=== PATIENT | female | born 1945 | race Caucasian/White ===

== ENCOUNTER 2023-06-19 22:19 | Inpatient (IN) | payer MEDICARE, OTHER ==
[~2023-06-19] VITALS: Ht 165.1 cm; Wt 71.2 kg
[2023-06-19 22:50] LABS: BASOPHILS # (AUTO) 0.1 K/UL (0.0-0.2); BASOPHILS % (AUTO) 0.6 % (0.0-2.0); EOSINOPHILS % (AUTO) 10.2 % (0.0-7.0); HEMATOCRIT 40.6 % (31.2-41.9); HEMOGLOBIN 13.3 g/dL (10.9-14.3); LYMPHOCYTES % (AUTO) 9.7 % (20.5-51.5); MEAN CORPUSCULAR HEMOGLOBIN 29.4 uug (24.7-32.8); MEAN CORPUSCULAR HGB CONC 33 g/dL (32.3-35.6); MEAN CORPUSCULAR VOLUME 89.7 fL (75.5-95.3); MONOCYTES # (AUTO) 0.9 K/uL (0.1-1.30); MONOCYTES % (AUTO) 9.5 % (0.0-11.0); PLATELET COUNT (AUTO) 355 K/uL (179-408); RED BLOOD CELL COUNT(AUTO) 4.52 MIL/uL (3.63-4.92); RED CELL DISTRIBUTION WIDTH 13.8 % (12.3-17.7); WHITE BLOOD COUNT (AUTO) 9.9 K/uL (3.8-11.8)
[2023-06-19] MEDS ORDERED: CLON1TAB12 PO (22:51)
[2023-06-19] MEDS ORDERED: CEPH500T PO (22:51)
[2023-06-19] MEDS ORDERED: BUSP10TA3 PO (22:51)
[2023-06-19] MEDS ORDERED: LATA2.5D15 OP (22:51)
[2023-06-19] MEDS ORDERED: FLUO20CA42 PO (22:51)
[2023-06-19] MEDS ORDERED: ALBU8.5H8 IH (22:51)
[2023-06-19] MEDS ORDERED: ATOR40TA PO (22:51)
[2023-06-19] MEDS ORDERED: CLOP75TA33 PO (22:51)
[2023-06-19] MEDS ORDERED: LEVO100T10 PO (22:51)
[2023-06-19] MEDS ORDERED: FLUT1BLS4 IH (22:51)
[2023-06-19] MEDS ORDERED: AMLO10TA59 PO (22:51)
[2023-06-19] MEDS ORDERED: LAMO25TA10 PO (22:51)
[2023-06-19 22:52] LABS: DIFFERENTIAL COMMENT 1
[2023-06-19 23:06] LABS: *BILIRUBIN,URIN NEGATIVE (NEGATIVE); *BLOOD, URINE 2+ (NEGATIVE); *COLOR,URINE YELLOW (YELLOW); *KETONES,URINE NEGATIVE (NEGATIVE); *PROTEIN,URINE 1+ (NEGATIVE); *UROBILINOGEN,URINE 0.2 E.U./dl (NORMAL); LEUKOCYTE ESTERASE ,URINE 2+ (NEGATIVE); NITRITE, URINE NEGATIVE (NEGATIVE); PH,URINE 5.5 (5.0-8.0); UGLUCOSE NEGATIVE (NEGATIVE)
[2023-06-19 23:07] LABS: ETHANOL < 3 MG/DL (0-10)
[2023-06-19 23:09] LABS: ALANINE AMINOTRANSFERASE 19 U/L (14-59); ALBUMIN 3.1 g/dL (3.4-5.0); ALKALINE PHOSPHATASE 99 U/L (50-136); ASPARTATE AMINOTRANSFERASE 9 U/L (15-37); BILIRUBIN,DIRECT 0.1 mg/dL (0.0-0.2); BILIRUBIN,TOTAL 0.1 mg/dL (0.2-1.0); CALCIUM 8.5 mg/dL (8.5-10.1); CARBON DIOXIDE 30 mmol/L (21-32); CHLORIDE 100 mmol/L (98-107); CREATININE 1.2 mg/dL (0.6-1.3); GLUCOSE 110 mg/dL (74-106); POTASSIUM 3.4 mmol/L (3.5-5.1); SODIUM SERUM 138 mmol/L (136-145); TOTAL PROTEIN, SERUM 6.3 g/dL (6.4-8.2); UREA NITROGEN, BLOOD 27 mg/dL (7-18)
[2023-06-19 23:12] LABS: *CLARITY,URINE SLIGHTLY CLOUDY (CLEAR)
[2023-06-19 23:14] LABS: *AMPHETAMINE, URINE NEGATIVE (NEGATIVE); *BARBITURATE, URINE NEGATIVE (NEGATIVE); *BENZODIAZEPINE, URINE NEGATIVE (NEGATIVE); *CANNABINOID, URINE NEGATIVE (NEGATIVE); *COCCAINE, URINE NEGATIVE (NEGATIVE); *OPIATE, URINE NEGATIVE (NEGATIVE); *PHENCYCLIDINE SCREEN,URINE NEGATIVE (NEGATIVE); FENTANYL, URINE NEGATIVE (NEGATIVE)
[2023-06-19 23:33] LABS: BACTERIA,URINE MOD /HPF (NONE SEEN); RBC,URINE 50-80 /HPF (0-3); SQUAMOUS EPITHELIAL CELL,UR FEW /HPF (NONE SEEN); WBC,URINE TNTC /HPF (0-3)
[2023-06-20] MEDS ORDERED: POTASSIUM CHLORIDE 20 MEQ TAB.PRT.SR PO ONE (00:15)
[2023-06-20] MEDS ORDERED: BLOOD SUGAR DIAGNOSTIC 1 EACH STRIP VI ONE (03:45)
[2023-06-20] MEDS ORDERED: MAG HYDROX/AL HYDROX/SIMETH 30 ML LIQUID UDC PO PRN (03:45)
[2023-06-20 04:28] VITALS: BP 113/49; TEMP 97.6; O2SAT 96
[2023-06-20 11:24] VITALS: BP 154/61; TEMP 97.6; O2SAT 98
[2023-06-20] MEDS ORDERED: LAMOTRIGINE 25 MG TABLET PO SCH (12:15)
[2023-06-20] MEDS: ACETAMINOPHEN 325 MG TABLET PO PRN ×2 (12:57→21:39)
[2023-06-20] MEDS: CEphaleXIN 500 MG CAPSULE PO SCH ×2 (14:14→22:23)
[2023-06-20] MEDS: FLUOXETINE HCL 20 MG CAPSULE PO SCH (14:14)
[2023-06-20 16:32] VITALS: BP 150/56; TEMP 98.2; O2SAT 98
[2023-06-20] MEDS: busPIRone 10 MG TABLET PO SCH (16:34)
[2023-06-20 20:00] VITALS: BP 131/52; TEMP 97.8; O2SAT 96
[2023-06-20] MEDS: LAMOTRIGINE 25 MG TABLET PO SCH (20:28)
[2023-06-20] MEDS: TEMAZEPAM 7.5 MG CAPSULE PO PRN (21:39)
[2023-06-21 07:52] VITALS: BP 142/52; TEMP 98.1; O2SAT 99
[2023-06-21 08:44] LABS: ALANINE AMINOTRANSFERASE 18 U/L (14-59); ALBUMIN 2.9 g/dL (3.4-5.0); ALKALINE PHOSPHATASE 91 U/L (50-136); ASPARTATE AMINOTRANSFERASE 9 U/L (15-37); BILIRUBIN,TOTAL 0.4 mg/dL (0.2-1.0); CALCIUM 8.3 mg/dL (8.5-10.1); CARBON DIOXIDE 29 mmol/L (21-32); CHLORIDE 104 mmol/L (98-107); GLUCOSE 113 mg/dL (74-106); POTASSIUM 4.3 mmol/L (3.5-5.1); SODIUM SERUM 140 mmol/L (136-145); TOTAL PROTEIN, SERUM 5.9 g/dL (6.4-8.2); UREA NITROGEN, BLOOD 22 mg/dL (7-18)
[2023-06-21] MEDS: FLUOXETINE HCL 20 MG CAPSULE PO SCH (08:52)
[2023-06-21] MEDS: busPIRone 10 MG TABLET PO SCH ×3 (08:52→16:28)
[2023-06-21] MEDS: LAMOTRIGINE 25 MG TABLET PO SCH ×2 (08:53→20:50)
[2023-06-21] MEDS: CEphaleXIN 500 MG CAPSULE PO SCH ×2 (09:10→20:49)
[2023-06-21 16:19] VITALS: BP 137/48; TEMP 98; O2SAT 99
[2023-06-21] MEDS: MAGNESIUM HYDROXIDE 30 ML LIQUID UDC PO PRN (16:36)
[2023-06-21 20:36] VITALS: BP 161/57; TEMP 98; O2SAT 96
[2023-06-22 08:04] VITALS: BP 133/51; TEMP 98.1; O2SAT 98
[2023-06-22] MEDS: busPIRone 10 MG TABLET PO SCH ×3 (08:39→17:15)
[2023-06-22] MEDS: FLUOXETINE HCL 20 MG CAPSULE PO SCH (08:39)
[2023-06-22] MEDS: CEphaleXIN 500 MG CAPSULE PO SCH ×2 (08:40→20:24)
[2023-06-22] MEDS: LAMOTRIGINE 25 MG TABLET PO SCH ×2 (08:40→20:24)
[2023-06-22 20:36] VITALS: BP 146/43; TEMP 98; O2SAT 98
[2023-06-22] MEDS: ACETAMINOPHEN 325 MG TABLET PO PRN (20:45)
[2023-06-22] MEDS ORDERED: LATANOPROST OPHT DROP 2.5 ML BOTTLE OP SCH (21:30)
[2023-06-22] MEDS ORDERED: ALBUTEROL SULFATE 8 GM HFA.AER.AD IH SCH (21:30)
[2023-06-22] MEDS: ATORVASTATIN 40 MG TABLET PO SCH (22:22)
[2023-06-22] MEDS: CLONAZEPAM 0.5 MG TABLET PO PRN (22:22)
[2023-06-22] MEDS: AMLODIPINE 10 MG TABLET PO SCH (22:22)
[2023-06-23] MEDS: LEVOTHYROXINE SODIUM 100 MCG TABLET PO SCH (06:09)
[2023-06-23 07:56] VITALS: BP 123/43; TEMP 98.1; O2SAT 100
[2023-06-23] MEDS: LAMOTRIGINE 25 MG TABLET PO SCH ×2 (08:33→20:44)
[2023-06-23] MEDS: CEphaleXIN 500 MG CAPSULE PO SCH ×2 (08:33→20:44)
[2023-06-23] MEDS: FLUOXETINE HCL 20 MG CAPSULE PO SCH (08:33)
[2023-06-23] MEDS: CLOPIDOGREL 75 MG TABLET PO SCH (08:33)
[2023-06-23] MEDS: busPIRone 10 MG TABLET PO SCH ×3 (08:34→16:17)
[2023-06-23] MEDS: FLUTICASONE/VILANTEROL 1 EACH BLST.W.DEV INH SCH (09:00)
[2023-06-23 16:30] VITALS: BP 135/57; TEMP 98; O2SAT 99
[2023-06-23 20:00] VITALS: BP 106/67; TEMP 98.4; O2SAT 97
[2023-06-23] MEDS: LATANOPROST OPHT DROP 2.5 ML BOTTLE EACHEYE SCH (20:43)
[2023-06-23] MEDS: ATORVASTATIN 40 MG TABLET PO SCH (20:45)
[2023-06-23] MEDS: AMLODIPINE 10 MG TABLET PO SCH (20:52)
[2023-06-24] MEDS: LEVOTHYROXINE SODIUM 100 MCG TABLET PO SCH (06:49)
[2023-06-24] MEDS: ALBUTEROL SULFATE 2.5 MG/3 ML NEBU NEB SCH ×3 (07:35→19:30)
[2023-06-24 07:52] VITALS: BP 126/52; TEMP 98; O2SAT 98
[2023-06-24 08:35] VITALS: O2SAT 98
[2023-06-24] MEDS: LAMOTRIGINE 25 MG TABLET PO SCH ×2 (08:50→21:05)
[2023-06-24] MEDS: CEphaleXIN 500 MG CAPSULE PO SCH ×2 (08:50→21:05)
[2023-06-24] MEDS: FLUOXETINE HCL 20 MG CAPSULE PO SCH (08:50)
[2023-06-24] MEDS: busPIRone 10 MG TABLET PO SCH ×3 (08:50→16:59)
[2023-06-24] MEDS: CLOPIDOGREL 75 MG TABLET PO SCH (08:50)
[2023-06-24] MEDS: FLUTICASONE/VILANTEROL 1 EACH BLST.W.DEV INH SCH (08:51)
[2023-06-24 13:45] VITALS: O2SAT 98
[2023-06-24] MEDS: ACETAMINOPHEN 325 MG TABLET PO PRN (14:48)
[2023-06-24 15:14] VITALS: BP 111/47; TEMP 98; O2SAT 99
[2023-06-24 19:28] VITALS: O2SAT 98
[2023-06-24 20:19] VITALS: BP 154/51; TEMP 98.1; O2SAT 97
[2023-06-24] MEDS: ATORVASTATIN 40 MG TABLET PO SCH (21:05)
[2023-06-24] MEDS: AMLODIPINE 10 MG TABLET PO SCH (21:06)
[2023-06-24] MEDS: LATANOPROST OPHT DROP 2.5 ML BOTTLE EACHEYE SCH (21:11)
[2023-06-24] MEDS: TEMAZEPAM 7.5 MG CAPSULE PO PRN (22:18)
[2023-06-25] MEDS: ALBUTEROL SULFATE 2.5 MG/3 ML NEBU NEB SCH ×4 (01:08→19:30)
[2023-06-25 01:09] VITALS: O2SAT 98
[2023-06-25] MEDS: LEVOTHYROXINE SODIUM 100 MCG TABLET PO SCH (06:29)
[2023-06-25 08:12] VITALS: BP 140/50; TEMP 98.2; O2SAT 99
[2023-06-25] MEDS: CLOPIDOGREL 75 MG TABLET PO SCH (09:15)
[2023-06-25] MEDS: FLUOXETINE HCL 20 MG CAPSULE PO SCH (09:15)
[2023-06-25] MEDS: CEphaleXIN 500 MG CAPSULE PO SCH ×2 (09:15→20:12)
[2023-06-25] MEDS: busPIRone 10 MG TABLET PO SCH ×3 (09:15→17:17)
[2023-06-25] MEDS: FLUTICASONE/VILANTEROL 1 EACH BLST.W.DEV INH SCH (09:16)
[2023-06-25] MEDS: LAMOTRIGINE 25 MG TABLET PO SCH ×2 (09:16→20:13)
[2023-06-25 16:00] VITALS: BP 125/60; TEMP 97; O2SAT 99
[2023-06-25] MEDS: ACETAMINOPHEN 325 MG TABLET PO PRN (18:29)
[2023-06-25 20:00] VITALS: BP 134/53; TEMP 98.1; O2SAT 100
[2023-06-25] MEDS: ATORVASTATIN 40 MG TABLET PO SCH (20:12)
[2023-06-25] MEDS: LATANOPROST OPHT DROP 2.5 ML BOTTLE EACHEYE SCH (20:12)
[2023-06-25] MEDS: AMLODIPINE 10 MG TABLET PO SCH (20:13)
[2023-06-25] MEDS: TEMAZEPAM 7.5 MG CAPSULE PO PRN (21:06)
[2023-06-25] MEDS: CLONAZEPAM 0.5 MG TABLET PO PRN (23:50)
[2023-06-26] MEDS: ALBUTEROL SULFATE 2.5 MG/3 ML NEBU NEB SCH ×4 (00:40→19:05)
[2023-06-26] MEDS: LEVOTHYROXINE SODIUM 100 MCG TABLET PO SCH (06:33)
[2023-06-26 07:30] VITALS: BP 127/59; TEMP 98; O2SAT 97
[2023-06-26] MEDS: CLOPIDOGREL 75 MG TABLET PO SCH (09:13)
[2023-06-26] MEDS: FLUOXETINE HCL 20 MG CAPSULE PO SCH (09:13)
[2023-06-26] MEDS: LAMOTRIGINE 25 MG TABLET PO SCH ×2 (09:13→20:27)
[2023-06-26] MEDS: FLUTICASONE/VILANTEROL 1 EACH BLST.W.DEV INH SCH (09:14)
[2023-06-26] MEDS: busPIRone 10 MG TABLET PO SCH ×3 (09:14→17:23)
[2023-06-26] MEDS: CEphaleXIN 500 MG CAPSULE PO SCH ×2 (09:14→20:27)
[2023-06-26 16:00] VITALS: BP 146/50; TEMP 97.6; O2SAT 98
[2023-06-26 20:00] VITALS: BP 137/52; TEMP 98.3; O2SAT 98
[2023-06-26] MEDS: TEMAZEPAM 7.5 MG CAPSULE PO PRN (20:27)
[2023-06-26] MEDS: ATORVASTATIN 40 MG TABLET PO SCH (20:27)
[2023-06-26] MEDS: LATANOPROST OPHT DROP 2.5 ML BOTTLE EACHEYE SCH (20:27)
[2023-06-26] MEDS: AMLODIPINE 10 MG TABLET PO SCH (20:29)
[2023-06-26] MEDS: CLONAZEPAM 0.5 MG TABLET PO PRN (22:52)
[2023-06-27] MEDS: ALBUTEROL SULFATE 2.5 MG/3 ML NEBU NEB SCH ×4 (01:30→19:30)
[2023-06-27] MEDS: LEVOTHYROXINE SODIUM 100 MCG TABLET PO SCH (06:54)
[2023-06-27 07:30] VITALS: BP 136/46; TEMP 98; O2SAT 95
[2023-06-27] MEDS: CLOPIDOGREL 75 MG TABLET PO SCH (08:30)
[2023-06-27] MEDS: busPIRone 10 MG TABLET PO SCH ×3 (08:30→16:36)
[2023-06-27] MEDS: FLUOXETINE HCL 20 MG CAPSULE PO SCH (08:30)
[2023-06-27] MEDS: FLUTICASONE/VILANTEROL 1 EACH BLST.W.DEV INH SCH (08:32)
[2023-06-27] MEDS: LAMOTRIGINE 25 MG TABLET PO SCH ×2 (08:32→20:07)
[2023-06-27 08:34] VITALS: O2SAT 98
[2023-06-27 13:33] VITALS: O2SAT 98
[2023-06-27 16:00] VITALS: BP 133/52; TEMP 98.3; O2SAT 96
[2023-06-27 20:00] VITALS: BP 144/55; TEMP 97.9; O2SAT 98
[2023-06-27] MEDS: LATANOPROST OPHT DROP 2.5 ML BOTTLE EACHEYE SCH (20:07)
[2023-06-27] MEDS: ATORVASTATIN 40 MG TABLET PO SCH (20:07)
[2023-06-27] MEDS: AMLODIPINE 10 MG TABLET PO SCH (20:07)
[2023-06-27 20:25] VITALS: O2SAT 98
[2023-06-27] MEDS: TEMAZEPAM 7.5 MG CAPSULE PO PRN (23:25)
[2023-06-28] MEDS: ALBUTEROL SULFATE 2.5 MG/3 ML NEBU NEB SCH ×2 (01:30→07:35)
[2023-06-28] MEDS: LEVOTHYROXINE SODIUM 100 MCG TABLET PO SCH (06:11)
[2023-06-28] MEDS: FLUTICASONE/VILANTEROL 1 EACH BLST.W.DEV INH SCH (08:13)
[2023-06-28] MEDS: LAMOTRIGINE 25 MG TABLET PO SCH ×2 (08:13→20:10)
[2023-06-28] MEDS: CLOPIDOGREL 75 MG TABLET PO SCH (08:14)
[2023-06-28] MEDS: busPIRone 10 MG TABLET PO SCH ×3 (08:14→16:20)
[2023-06-28] MEDS: FLUOXETINE HCL 20 MG CAPSULE PO SCH (08:14)
[2023-06-28 08:15] VITALS: BP 113/44; TEMP 98.1; O2SAT 99
[2023-06-28] MEDS ORDERED: ALBUTEROL SULFATE 2.5 MG/3 ML NEBU NEB PRN (12:15)
[2023-06-28 15:31] VITALS: O2SAT 98
[2023-06-28 16:09] VITALS: BP 142/45; TEMP 98; O2SAT 98
[2023-06-28 20:00] VITALS: BP 154/53; TEMP 98.2; O2SAT 97
[2023-06-28] MEDS: AMLODIPINE 10 MG TABLET PO SCH (20:11)
[2023-06-28] MEDS: LATANOPROST OPHT DROP 2.5 ML BOTTLE EACHEYE SCH (20:12)
[2023-06-28] MEDS: ATORVASTATIN 40 MG TABLET PO SCH (20:47)
[2023-06-28] MEDS: TEMAZEPAM 7.5 MG CAPSULE PO PRN (22:38)
[2023-06-29] MEDS: LEVOTHYROXINE SODIUM 100 MCG TABLET PO SCH (06:25)
[2023-06-29 08:18] VITALS: BP 140/60; TEMP 98.2; O2SAT 100
[2023-06-29] MEDS: FLUOXETINE HCL 20 MG CAPSULE PO SCH (08:29)
[2023-06-29] MEDS: CLOPIDOGREL 75 MG TABLET PO SCH (08:29)
[2023-06-29] MEDS: busPIRone 10 MG TABLET PO SCH ×3 (08:29→17:04)
[2023-06-29] MEDS: FLUTICASONE/VILANTEROL 1 EACH BLST.W.DEV INH SCH (08:31)
[2023-06-29] MEDS: LAMOTRIGINE 25 MG TABLET PO SCH ×2 (08:33→20:42)
[2023-06-29 16:33] VITALS: BP_SYST 125; BP_SYST 144; BP_DIAS 57; TEMP 98; O2SAT 98; O2SAT 99
[2023-06-29] MEDS: CLONAZEPAM 0.5 MG TABLET PO PRN (17:45)
[2023-06-29 20:03] VITALS: BP 142/58; TEMP 98.1; O2SAT 98
[2023-06-29] MEDS: ATORVASTATIN 40 MG TABLET PO SCH (20:42)
[2023-06-29] MEDS: LATANOPROST OPHT DROP 2.5 ML BOTTLE EACHEYE SCH (20:42)
[2023-06-29] MEDS: AMLODIPINE 10 MG TABLET PO SCH (20:43)
[2023-06-29] MEDS: TEMAZEPAM 7.5 MG CAPSULE PO PRN (22:54)
[2023-06-30] MEDS: LEVOTHYROXINE SODIUM 100 MCG TABLET PO SCH (06:30)
[2023-06-30 07:58] VITALS: BP 128/44; TEMP 98; O2SAT 98
[2023-06-30] MEDS: LAMOTRIGINE 25 MG TABLET PO SCH ×2 (09:05→20:49)
[2023-06-30] MEDS: FLUOXETINE HCL 20 MG CAPSULE PO SCH (09:05)
[2023-06-30] MEDS: CLOPIDOGREL 75 MG TABLET PO SCH (09:05)
[2023-06-30] MEDS: busPIRone 10 MG TABLET PO SCH ×3 (09:05→17:17)
[2023-06-30] MEDS: FLUTICASONE/VILANTEROL 1 EACH BLST.W.DEV INH SCH (09:07)
[2023-06-30 16:14] VITALS: BP 142/67; TEMP 98.1; O2SAT 98
[2023-06-30 20:08] VITALS: BP 138/68; TEMP 98.2; O2SAT 96
[2023-06-30] MEDS: ATORVASTATIN 40 MG TABLET PO SCH (20:48)
[2023-06-30] MEDS: LATANOPROST OPHT DROP 2.5 ML BOTTLE EACHEYE SCH (20:48)
[2023-06-30] MEDS: AMLODIPINE 10 MG TABLET PO SCH (20:48)
[2023-06-30] MEDS: TEMAZEPAM 7.5 MG CAPSULE PO PRN (23:58)
[2023-07-01] MEDS: LEVOTHYROXINE SODIUM 100 MCG TABLET PO SCH (07:02)
[2023-07-01 07:30] VITALS: BP 133/44; TEMP 98.2; O2SAT 96
[2023-07-01] MEDS: CLOPIDOGREL 75 MG TABLET PO SCH (08:33)
[2023-07-01] MEDS: busPIRone 10 MG TABLET PO SCH ×3 (08:33→16:14)
[2023-07-01] MEDS: FLUOXETINE HCL 20 MG CAPSULE PO SCH (08:34)
[2023-07-01] MEDS: LAMOTRIGINE 25 MG TABLET PO SCH ×2 (08:34→20:43)
[2023-07-01] MEDS: FLUTICASONE/VILANTEROL 1 EACH BLST.W.DEV INH SCH (08:34)
[2023-07-01 16:29] VITALS: BP 122/41; TEMP 98; O2SAT 97
[2023-07-01 19:50] VITALS: BP 142/42; TEMP 98.1; O2SAT 95
[2023-07-01] MEDS: ATORVASTATIN 40 MG TABLET PO SCH (20:43)
[2023-07-01] MEDS: AMLODIPINE 10 MG TABLET PO SCH (20:43)
[2023-07-01] MEDS: CLONAZEPAM 0.5 MG TABLET PO PRN (20:53)
[2023-07-01] MEDS: LATANOPROST OPHT DROP 2.5 ML BOTTLE EACHEYE SCH (21:07)
[2023-07-01] MEDS: TEMAZEPAM 7.5 MG CAPSULE PO PRN (22:14)
[2023-07-02] MEDS: LEVOTHYROXINE SODIUM 100 MCG TABLET PO SCH (07:15)
[2023-07-02 08:00] VITALS: BP 112/41; TEMP 99; O2SAT 96
[2023-07-02] MEDS: CLOPIDOGREL 75 MG TABLET PO SCH (08:30)
[2023-07-02] MEDS: busPIRone 10 MG TABLET PO SCH ×3 (08:30→16:28)
[2023-07-02] MEDS: FLUOXETINE HCL 20 MG CAPSULE PO SCH (08:30)
[2023-07-02] MEDS: LAMOTRIGINE 25 MG TABLET PO SCH ×2 (08:33→20:59)
[2023-07-02] MEDS: FLUTICASONE/VILANTEROL 1 EACH BLST.W.DEV INH SCH (08:33)
[2023-07-02 16:00] VITALS: BP 107/67; TEMP 98.4; O2SAT 96
[2023-07-02] MEDS: CLONAZEPAM 0.5 MG TABLET PO PRN (19:15)
[2023-07-02 20:00] VITALS: BP 123/50; TEMP 98.5
[2023-07-02] MEDS: LATANOPROST OPHT DROP 2.5 ML BOTTLE EACHEYE SCH (20:59)
[2023-07-02] MEDS: ATORVASTATIN 40 MG TABLET PO SCH (21:00)
[2023-07-02] MEDS: AMLODIPINE 10 MG TABLET PO SCH (21:02)
[2023-07-02] MEDS: MAGNESIUM HYDROXIDE 30 ML LIQUID UDC PO PRN (21:37)
[2023-07-02] MEDS: TEMAZEPAM 7.5 MG CAPSULE PO PRN (21:39)
[2023-07-03] MEDS: LEVOTHYROXINE SODIUM 100 MCG TABLET PO SCH (06:27)
[2023-07-03 07:30] VITALS: BP 133/42; TEMP 98; O2SAT 98
[2023-07-03] MEDS: LAMOTRIGINE 25 MG TABLET PO SCH (08:30)
[2023-07-03] MEDS: FLUOXETINE HCL 20 MG CAPSULE PO SCH (08:30)
[2023-07-03] MEDS: FLUTICASONE/VILANTEROL 1 EACH BLST.W.DEV INH SCH (08:30)
[2023-07-03] MEDS: CLOPIDOGREL 75 MG TABLET PO SCH (08:30)
[2023-07-03] MEDS: busPIRone 10 MG TABLET PO SCH ×2 (08:30→12:19)
[2023-07-03] MEDS ORDERED: GLUCERNA SHAKE 237 ML CAN PO SCH (09:00)
== END 2023-07-03 14:45 | DRG 885 ==
LOC: ER 22:29 → GPS 23:20
PROVIDERS: ADMIT Psychiatry & Neurology Psychiatry; ATTEND Nurse Practitioner Acute Care
DX: F31.9 Bipolar disorder, unspecified (principal); N18.9 Chronic kidney disease, unspecified; B95.1 Streptococcus, group B, as the cause of diseases classified elsewhere; G93.41 Metabolic encephalopathy; N39.0 Urinary tract infection, site not specified; E44.1 Mild protein-calorie malnutrition; Z73.6 Limitation of activities due to disability; E03.9 Hypothyroidism, unspecified; F43.10 Post-traumatic stress disorder, unspecified; Z79.899 Other long term (current) drug therapy; Z88.6 Allergy status to analgesic agent; Z88.8 Allergy status to other drugs, medicaments and biological substances; Z79.890 Hormone replacement therapy; Z79.02 Long term (current) use of antithrombotics/antiplatelets; Z86.73 Personal history of transient ischemic attack (TIA), and cerebral infarction without residual deficits; E88.09 Other disorders of plasma-protein metabolism, not elsewhere classified; E87.6 Hypokalemia; I12.9 Hypertensive chronic kidney disease with stage 1 through stage 4 chronic kidney disease, or unspecified chronic kidney disease; Z88.1 Allergy status to other antibiotic agents; Z87.440 Personal history of urinary (tract) infections; E78.5 Hyperlipidemia, unspecified
CPT/HCPCS: 36415; 85025; G0480; J3535